=== PATIENT | male | born 1980 | race Two or more races ===

== ENCOUNTER 2024-06-05 07:57 | Emergency (ER) | payer OTHER ==
[~2024-06-05] VITALS: Ht 182.9 cm; Wt 120.5 kg
--- NOTE | 2024-06-05 08:14 | ED.PDOC ---
History of Present Illness HPI Comments 43 year old male presents to the ED via EMS with a chief complaint of syncope onset today (06/05/24). 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 Upon EMS arrival, patient was unresponsive with pinpoint pupils, given 4 mg Narcan. Patient appears short of breath, altered, confused, sweats. PMHx HTN, epilepsy. Chief Complaint: ALOC Time Seen by MD: 08:05 Reviewed Notes: Medications, Allergies Allergies: Coded Allergies: UNOBTAINABLE (Unverified , 06/05/24) Information Source: Emergency Med Personnel Mode of Arrival: EMS Severity: Moderate Timing: Minutes Duration: Since onset Prehospital treatment: Other (Narcan 4 mg) Past Medical History PAST MEDICAL HISTORY: HTN Past Medical History (Other): Epilepsy Surgical History: Unknown Family History Family History: Unknown Social History Smoker: Unknown Alcohol: Unknown Drugs: Unknown Lives In: Home Unable to Obtain due to: Altered Mental Status Physical Exam General Appearance: Moderate Distress, Normal HEENT: Normal ENT Inspection, Pharynx Normal, TMs Normal Neck: Full Range of Motion, Non-Tender, Normal, Normal Inspection Respiratory: Chest Non-Tender, Lungs Clear, No Accessory Muscle Use, No Respiratory Distress, Normal Breath Sounds Cardiovascular: No Edema, No JVD, No Murmur, No Gallop, Normal Peripheral Pulses, Regular Rate/Rhythm Breast Exam: Deferred Gastrointestinal: No Organomegaly, Non Tender, No Pulsatile Mass, Normal Bowel Sounds, Soft Genitalia: Deferred Pelvic: Deferred Rectal: Deferred Extremities: No calf tenderness, Normal capillary refill, No pedal edema Musculoskeletal : Apperance: Normal Neurologic: sas sql developer II-XII nml as Tested, Disoriented, No Motor Deficits, No Sensory Deficits Cerebellar Function: NOT DONE Reflexes: NOT DONE Skin: Dry, Normal Color, Warm Peripheral Pulses: 3+ Radial (R), 3+ Radial (L) Lymphatic: No Adenopathy Was a procedure done? Was a procedure done?: No Differential Dx Considerations may include: Encephalopathy Electrolyte imbalance X-Ray, Labs, Meds, VS Vital Signs Date Time Temp Pulse Resp B/P (MAP) Pulse Ox O2 Delivery O2 Flow Rate FiO2 06/05/24 09:47 98.8 78 15 135/101 (112) 92 98.8 06/05/24 09:45 72 16 135/101 (112) 90 06/05/24 09:24 65 06/05/24 09:00 58 22 136/81 (99) 83 06/05/24 09:00 71 22 92 Nasal Cannula* 4 36 06/05/24 08:16 80 06/05/24 08:00 97.5 103 18 117/47 (70) 92 97.5 06/05/24 08:00 97.5 67 20 123/97 (106) 90 97.5 Lab Test 06/05/24 09:18 06/05/24 09:17 06/05/24 08:19 Range/Units Lactic Acid Level 3.5 *H 3.2 *H 0.4-2.0 mmol/L Troponin I High Sensitivity 105 *H 17 </=54 ng/L Urine Color Yellow Yellow Urine Clarity Clear Clear Urine pH 7.0 5.0-9.0 Urine Specific [place] 1.016 1.001-1.035 Urine Protein 3+ H Negative Urine Ketones Negative Negative Urine Blood Negative Negative /uL Urine Nitrite Negative Negative Urine Bilirubin Negative Negative Urine Urobilinogen Normal Negative mg/dL Urine Leukocyte Esterase Negative Negative /uL Urine RBC 5 0 - 3 /hpf Urine Microscopic WBC 4 H 0-3 /HPF Urine Squamous Epithelial Cells Few <5 /hpf Urine Bacteria Few H None Seen /hpf Urine Glucose 1+ H Normal mg/dL Urine Opiates Screen Neg NEGATIVE Urine Fentanyl Screen Neg NEGATIVE Urine Barbiturates Screen Neg NEGATIVE Urine Phencyclidine Screen Neg NEGATIVE Urine Amphetamines Screen Neg NEGATIVE Urine Benzodiazepines Screen Neg NEGATIVE Urine Cocaine Screen Neg NEGATIVE Urine Cannabinoids Screen Neg NEGATIVE White Blood Count 8.6 4.4-10.8 10^3/uL Red Blood Count 4.74 4.5-5.90 10^6/uL Hemoglobin 13.9 13.5-17.5 g/dL Hematocrit 40.5 L 41.0-53.0 % Mean Corpuscular Volume 85.6 80.0-100.0 fL Mean Corpuscular Hemoglobin 29.4 28.0-32.0 pg Mean Corpuscular Hemoglobin Concent 34.3 32.0-36.0 g/dL Red Cell Distribution Width 13.0 11.8-14.3 % Platelet Count 223 140-450 10^3/uL Mean Platelet Volume 8.8 6.9-10.8 fL Neutrophils (%) (Auto) 37.0-80.0 % Lymphocytes (%) (Auto) 10.0-50.0 % Monocytes (%) (Auto) 0.0-12.0 % Basophils (%) (Auto) 0.0-2.0 % Neutrophils # (Auto) 1.6-8.6 10 ^3/uL Lymphocytes # (Auto) 0.4-5.4 10 ^3/uL Monocytes # (Auto) 0-1.3 10 ^3/uL Differential Total Cells Counted 100.0 100 Neutrophils % (Manual) 23 L 37.0-80.0 Band Neutrophils % (Manual) 0 Lymphocytes % (Manual) 54 H 10.0-50.0 Monocytes % (Manual) 8 0-12 Eosinophils % (Manual) 3 0-7 Basophils % (Manual) 0 0.0-2.0 Metamyelocytes % (manual) 0 Myelocytes % (Manual) 0 Promyelocytes % (Manual) 0 Blast Cells % (Manual) 0 Reactive Lymphocytes 12 Platelet Estimate Adequate Red Blood Cell Morphology Normal Sodium Level 139 136-145 mmol/L Potassium Level 3.7 3.5-5.1 mmol/L Chloride Level 105 98-107 mmol/L Carbon Dioxide Level 22 20-31 mmol/L Anion Gap 12 5-15 Blood Urea Nitrogen 16 9-23 mg/dL Creatinine 0.90 0.700-1.30 mg/dL Glomerular Filtration Rate Calc 108 >90 mL/min BUN/Creatinine Ratio 17.8 10.0-20.0 Serum Glucose 210 H 74-106 mg/dL Calcium Level 9.5 8.7-10.4 mg/dL Plasma/Serum Blood Alcohol < 3.0 <10 mg/dL Current Medications Medications (Trade) Dose Ordered Sig/Ion Route Start Time Stop Time Status Last Admin Sodium Chloride 1,000 ml @ 1,000 mls/hr Q1H ONCE IVB 06/05/24 08:15 06/05/24 09:14 DC 06/05/24 08:15 Ondansetron HCl (Zofran) 4 mg ONCE ONCE IV 06/05/24 08:15 06/05/24 08:16 DC 06/05/24 09:30 Ceftriaxone Sodium 50 ml @ 100 mls/hr ONCE ONCE IV 06/05/24 09:30 06/05/24 09:59 DC 06/05/24 09:30 Metronidazole 100 ml @ 100 mls/hr ONCE ONCE IV 06/05/24 09:30 06/05/24 10:29 DC 06/05/24 09:42 Patient altered. Vitals stable. Unable to get history. He was given Narcan in the field. Responded to Narcan. He was at work when this happened. EKG reviewed does not show any acute changes. Establish intravenous access. Was given fluids. Reviewed his history. Was able to contact family he does have a history of seizure disorder. Waiting for family. Continue monitoring. [address] [address] Ph: [phone] DIAGNOSTIC IMAGING Diagnostic Imaging Report : [id number] Signed PATIENT: ALIEDA BASS ACCT: [id number] UNIT: [id number] : 06/05/1981 LOC: ER ROOM / BED: / AGE / SEX: 43 / M ADM STATUS: REG ER SERVICE 0 ORDERING PHYSICIAN: CLARISSE MARIE MD PROCEDURE(s): HWOCT - HEAD WITHOUT CONTRAST REASON: altered ORDER NUMBER(s): [id number], ACCESSION NUMBER(s): [id number] EXAM: CT HEAD WITHOUT CONTRAST INDICATION: Altered TECHNIQUE: CT of the head without intravenous contrast. Coronal and sagittal reformatted images are submitted. Radiation Dose : 1. Head: CT Dose: CTDI volume is 68.42 mGy. Dose-length product is 1347.95 mGy*cm The dose indicators for CT are the volume Computed Tomography (CT) Dose Index (CTDIvol) and the Dose Length Product (DLP), and are measured in units of mGy and mGy-cm, respectively. These indicators are not patient dose, but values generated from the CT scanner acquisition factors. The report includes radiation exposure data for exposures received during this examination. All CT scans at this medical facility are performed using dose modulation techniques as appropriate to a performed exam including the following: Automated exposure control was utilized; adjustment of the MA and/or KV according to patient size; and use of iterative reconstruction technique. COMPARISON: None FINDINGS: Diffuse acute subarachnoid hemorrhage. There subarachnoid hemorrhage in the suprasellar cisterns, ambient cistern and the 4th ventricle. No midline shift. The ventricles, sulci and cisterns are age appropriate. The jackson-white differentiation is intact. The mastoid air cells are clear. Mucosal thickening in the right maxillary sinus. No depressed calvarial fracture. The surrounding soft tissues are unremarkable. IMPRESSION: 1. Diffuse acute subarachnoid hemorrhage. CT angiography of the head is recommended for further evaluation. ATED BY: MEEK HERNANDEZ MD DICTATED DATE/TIME: 06/05/24858 SIGNED BY: MEEK HERNANDEZ MD SIGNED DATE/TIME: 06/05/24858 CC: [place] [id number] Ph: [phone] DIAGNOSTIC IMAGING Diagnostic Imaging Report : [id number] Signed PATIENT: ALEIDA BASS ACCT: [id number] UNIT: [id number] : 06/05/1981 LOC: ER ROOM / BED: / AGE / SEX: 43 / M ADM STATUS: REG ER SERVICE 0 ORDERING PHYSICIAN: CLARISSE MARIE MD PROCEDURE(s): CXRP - CHEST PORTABLE REASON: sob ORDER NUMBER(s): [id number], ACCESSION NUMBER(s): [id number] CHEST RADIOGRAPH Indication: sob Technique: Single frontal view of the chest was obtained COMPARISON: None FINDINGS: Lines and Tubes: None Lungs: Multifocal airspace disease Pleura: No effusion. No pneumothorax. Cardiomediastinal contours: Cardiomegaly Bones: Unremarkable IMPRESSION: Multifocal airspace disease. ATED BY: GEE CASILLAS MD DICTATED DATE/TIME: 06/05/24900 SIGNED BY: GEE CASILLAS MD SIGNED DATE/TIME: 06/05/24900 CC: Time of 1ST Reevaluation: 08:35 Reevaluation 1ST: Unchanged Patient Education/Counseling: Diagnosis, Treatment Family Education/Counseling: No Family Present Additional Information The following tests were ordered, and results were reviewed by me: TROP-x3, CBC, LA W/ REFLEX, UA, XY CHEST, CT HEAD WO CONTRAST, DRUG SCREEN, BLOOD CULTURE, BLOOD ALCOHOL, BMP Additional Information was gathered from interviewing the following independent historians: EMS I reviewed and agreed with the following test results read by other providers: XY CHEST, CT HEAD WO CONTRAST, I discussed treatment and results with medical personnel and: Patient Comprehensive systems review obtained and negative except for what is stated in the HPI. Departure 1 Departure Time of Disposition: 08:53 Impression: Primary Impression: Metabolic encephalopathy Additional Impressions: Seizure disorder Subarachnoid hemorrhage Disposition: 02 SHORT TERM HOSPITAL Admit to: Med Surg Condition: Guarded Critical Care Note Critical Care Time?: Yes (90 min-critical care time only) Critical care comment: Altered unable to give any history Stability Stability form required: No Heart Score Heart Score: Heart Score Response (Comments) Value History Slightly Suspicious 0 EKG Normal 0 Age 45-64 1 Risk Factors 1 or 2 risk factors 1 Troponin Normal limit 0 Total 2 I personally scribed for CLARISSE MARIE MD ([email or web address]) on 06/05/24 at 08:14. Electronically submitted by Alejandra Austin ([email or web address]). I personally scribed for CLARISSE MARIE MD ([email or web address]) on 06/05/24 at 08:26. Electronically submitted by Alejandra Austin ([email or web address]). I personally scribed for CLARISSE MARIE MD ([email or web address]) on 06/05/24 at 09:03. Electronically submitted by Alejandra Austin ([email or web address]). I personally scribed for CLARISSE MARIE MD ([email or web address]) on 06/05/24 at 09:16. Electronically submitted by Alejandra Austin ([email or web address]). CLARISSE MARIE MD Jun 05, 2024 08:14
[2024-06-05] MEDS ORDERED: SODIUM CHLORIDE 0.9% 1,000 ML IV ONE (08:15)
[2024-06-05] MEDS: SODIUM CHLORIDE 0.9% 1,000 ML IVB ONE (08:15)
[2024-06-05 09:00] VITALS: PULSE 71; RESP 22; O2SAT 92
--- NOTE | 2024-06-05 09:01 | DVH ---
EXAM: CT HEAD WITHOUT CONTRAST INDICATION: Altered TECHNIQUE: CT of the head without intravenous contrast. Coronal and sagittal reformatted images are s ubmitted. Radiation Dose : 1. Head: CT Dose: CTDI volume is 68.42 mGy. Dose-length product is 1347.95 mGy*cm The dose indicators for CT are the volume Computed Tomography (CT) Dose Index (CTDIvol) and the Dose Length Product (DLP), and are measured in units of mGy and mGy-cm, respectively. These indicators are not patient dose, but values generated from the CT scanner acquisition factors. The report includes radiation exposure data for exposures received during this examination. All CT scans at this medical facility are performed using dose modulation techniques as appropriate to a performed exam including the following: Automated exposure control was utilized; adjustment of the MA and/or KV according to patient size; and use of iterative reconstruction technique. COMPARISON: None FINDINGS: Diffuse acute subarachnoid hemorrhage. There subarachnoid hemorrhage in the suprasellar cisterns, amb ient cistern and the 4th ventricle. No midline shift. The ventricles, sulci and cisterns are age appropriate. The jackson-white differentiation is intact. The mastoid air cells are clear. Mucosal thickening in the right maxillary sinus. No depressed calvarial fracture. The surrounding soft tissues are unremarkable. IMPRESSION: 1. Diffuse acute subarachnoid hemorrhage. CT angiography of the head is recommended for further eval uation.
[2024-06-05 09:02] LABS: Chloride 105 mmol/L (98-107); Potassium 3.7 mmol/L (3.5-5.1); Sodium 139 mmol/L (136-145)
[2024-06-05 09:03] LABS: Anion Gap 12 (5-15); Carbon Dioxide 22 mmol/L (20-31)
--- NOTE | 2024-06-05 09:03 | DVH ---
CHEST RADIOGRAPH Indication: sob Technique: Single frontal view of the chest was obtained COMPARISON: None FINDINGS: Lines and Tubes: None Lungs: Multifocal airspace disease Pleura: No effusion. No pneumothorax. Cardiomediastinal contours: Cardiomegaly Bones: Unremarkable IMPRESSION: Multifocal airspace disease.
[2024-06-05 09:04] LABS: Calcium 9.5 mg/dL (8.7-10.4)
[2024-06-05 09:09] LABS: BUN/Creatinine Ratio 17.8 (10.0-20.0); Blood Urea Nitrogen 16 mg/dL (9-23); Glucose 210 mg/dL (74-106)
[2024-06-05 09:10] LABS: Hematocrit 40.5 % (41.0-53.0); Hemoglobin 13.9 g/dL (13.5-17.5); Mean Corpuscular Hemoglobin 29.4 pg (28.0-32.0); Mean Corpuscular Hgb Conc. 34.3 g/dL (32.0-36.0); Mean Corpuscular Volume 85.6 fL (80.0-100.0); Platelet Count (auto) 223 10^3/uL (140-450); Red Blood Cells 4.74 10^6/uL (4.5-5.90); White Blood Cell 8.6 10^3/uL (4.4-10.8)
[2024-06-05 09:12] LABS: Band Neutrophils % (manual) 0; Basophils % (manual) 0 (0.0-2.0); Blast Cells 0; Metamyelocytes % 0; Myelocytes % 0; Promyelocytes % 0
[2024-06-05 09:13] LABS: Blood Alcohol < 3.0 mg/dL (<10)
[2024-06-05 09:18] LABS: Lactic Acid w/Reflex 3.2 mmol/L (0.4-2.0)
[2024-06-05] MEDS: ONDANSETRON HCL 4 MG/2 ML VIAL IV ONE (09:30)
[2024-06-05] MEDS: cefTRIAXone 1GM/50ML D5W 50 ML IV ONE (09:30)
[2024-06-05] MEDS: metroNIDAZOLE 500MG/100ML 100 ML IV ONE (09:42)
[2024-06-05 09:47] VITALS: BP 135/101; PULSE 78; RESP 15; TEMP 98.8; O2SAT 92
[2024-06-05 09:48] LABS: Eosinophils % (manual) 3 (0-7); Lymphocytes % (manual) 54 (10.0-50.0); Monocytes % (manual) 8 (0-12); Platelet Estimate Adequate; Reactive Lymphocytes 12
[2024-06-05 09:49] LABS: RBC Morphology Normal
[2024-06-05 10:11] LABS: Urine Bacteria FEW /hpf (None Seen); Urine Blood Negative /uL (Negative); Urine Clarity Clear (Clear); Urine Color Yellow (Yellow); Urine Protein, UAD 3+ (Negative); Urine Specific Gravity 1.016 (1.001-1.035); Urine Squamous Epithelial Cell FEW /hpf (<5); Urine Urobilinogen Normal (Negative); Urine WBC 4 /HPF (0-3)
[2024-06-05 10:24] LABS: Amphetamine Screen, Urine Neg (NEGATIVE); Barbiturate Scree,Urine Neg (NEGATIVE); Benzodiazephine Screen, Urine Neg (NEGATIVE); Cocaine Screen, Urine Neg (NEGATIVE); Opiate Scree,Urine Neg (NEGATIVE); Phencyclidine Screen, Urine Neg (NEGATIVE)
[2024-06-05 10:25] LABS: Cannabinoid Screen, Urine Neg (NEGATIVE)
--- NOTE | 2024-06-05 19:56 | ECG ---
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
--- NOTE | 2024-06-06 08:59 | ECG ---
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
== END 2024-06-05 10:09 | disposition short-term general hospital (02) ==
LOC: ER 07:57 → EDBD 07:57 → ER 10:09
DX: G93.41 Metabolic encephalopathy (principal); G40.909 Epilepsy, unspecified, not intractable, without status epilepticus; I60.9 Nontraumatic subarachnoid hemorrhage, unspecified; I10 Essential (primary) hypertension; Z79.899 Other long term (current) drug therapy
CPT/HCPCS: 36415; 70450; 71045; 80048; 80307; 80320; 81001; 82947; 83605; 84484; 85007; 85027; 87040; 93005; 96361; 96365; 96368; 96375; 99291; 99292; J0696; J2405; J3490; J7030